=== PATIENT | female | born 1940 | race African-American/Black ===

== ENCOUNTER 2020-07-20 13:33 | Outpatient (CLI) | payer MEDICARE ==
--- NOTE | 2020-07-20 14:53 | Mammography Report ---
DEXA BONE DENSITY SCAN INDICATION / CLINICAL INFORMATION: AGE RELATED OSTEOPOROSIS. 80 years Female COMPARISON: DEXA scan from 06/02/2018 LUMBAR SPINE, 0.746: - Bone mineral density (BMD) = -2.7 g/cm2. - T-score = -2.7 - Z-score = -0.2 Change (%) since most recent prior (if available): -4.8 LEFT HIP, NECK : - Bone mineral density (BMD) = 0.473 g/cm2. - T-score = -3.4 - Z-score = -1.2 Change (%) since most recent prior (if available): -32.1 IMPRESSION: 1. WHO Classification: Osteoporosis. Fracture Risk: High. BMD Reporting Guidelines (ISCD, 2015) BMD Reporting in Postmenopausal Women and in Men Age 50 and Older * T-scores are preferred. * The WHO densitometric classification is applicable. BMD Reporting in Females Prior to Menopause and in Males Younger Than Age 50 * Z-scores, not T-scores, are preferred. This is particularly important in children. * A Z-score of -2.0 or lower is defined as below the expected range for age, and a Z-score above -2. 0 is within the expected range for age. * Osteoporosis cannot be diagnosed in men under age 50 on the basis of BMD alone. * The WHO diagnostic criteria may be applied to women in the menopausal transition. http://www.iscd.org/official-positions/8550-ivau-ttbrfmmg-positions-adult/ Signer Name: Baldev Matta MD Signed: 07/20/2020 2:49 PM Workstation Name: [id number]
== END 2020-07-20 13:34 | disposition home or self-care (01) ==
LOC: SPVWC 13:33
DX: M81.0 Age-related osteoporosis without current pathological fracture (principal)
CPT/HCPCS: 77080